=== PATIENT | female | born 1985 | race Hispanic/Latino ===

== ENCOUNTER 2021-08-10 07:48 | Outpatient (CLI) | payer BC | END 2021-08-10 07:49 | disposition home or self-care (01) | LOC: CSHCT 07:48 | PROVIDERS: ATTEND Nurse Practitioner Family | DX: R10.32 Left lower quadrant pain (principal); R35.0 Frequency of micturition; R82.998 Other abnormal findings in urine; R10.9 Unspecified abdominal pain; R11.0 Nausea; R93.5 Abnormal findings on diagnostic imaging of other abdominal regions, including retroperitoneum | CPT/HCPCS: 74177 ==